=== PATIENT | male | born 1990 | race Two or more races ===

== ENCOUNTER 2023-03-05 18:53 | Emergency (ER) | payer OTHER ==
[2023-03-05 19:00] VITALS: BP 115/82; PULSE 85; RESP 18; TEMP 98.1; BMI 21.2
[2023-03-05] MEDS ORDERED: LIDOCAINE 5% TOPICAL PATCH TP ONE ×2 (19:53→19:54)
[2023-03-05] MEDS ORDERED: ACETAMINOPHEN 500 MG TABLET (FP) PO ONE (19:53)
[2023-03-05] MEDS ORDERED: ACETAMINOPHEN 500 MG TABLET (FP) ONE (19:59)
[2023-03-05] MEDS ORDERED: LIDOCAINE 4% PATCH TP ONE (20:01)
[2023-03-05] MEDS ORDERED: KETOROLAC TROMETHAMINE 30 MG/1 ML VIAL IM ONE (21:32)
[2023-03-05] MEDS ORDERED: IBUPROFEN 600 MG TABLET (FP) PO ONE ×2 (21:39→21:41)
[2023-03-05] MEDS ORDERED: LIDOCAINE PATCH REMOVAL MC SCH ×2 (22:00)
== END 2023-03-05 22:02 | disposition home or self-care (01) ==
LOC: JERFT 18:53
DX: M54.50 Low back pain, unspecified (principal); M25.512 Pain in left shoulder; M25.552 Pain in left hip; M79.605 Pain in left leg; R51.9 Headache, unspecified; V49.40XA Driver injured in collision with unspecified motor vehicles in traffic accident, initial encounter; Y93.I9 Activity, other involving external motion
CPT/HCPCS: 70450-TC; 72125-TC; 72131-TC; 72170-TC-FY; 73030-TC-LT-FY; 73502-TC-LT-FY; 73590-TC-LT-FY; 99284-25

== ENCOUNTER 2023-05-12 04:18 | Emergency (ER) | payer OTHER ==
[2023-05-12 04:23] VITALS: BP 118/81; PULSE 72; RESP 18; TEMP 98.3; BMI 21.2
[2023-05-12] MEDS ORDERED: ACETAMINOPHEN INJECTION 100 ML IVPB ONE (04:54)
[2023-05-12] MEDS ORDERED: ONDANSETRON 4 MG/2 ML VIAL ONE (04:56)
[2023-05-12] MEDS: ACETAMINOPHEN 1000 MG/100 ML BAG IVPB ONE (04:56)
[2023-05-12] MEDS: SODIUM CHLORIDE 0.9% 500 ML INFUS.BAG IV ONE (05:03)
[2023-05-12] MEDS: ONDANSETRON 4 MG/2 ML VIAL IVPUSH ONE (05:03)
[2023-05-12 05:30] LABS: BASO % 0.4 % (0-2.0); EOS % 4.3 % (0-4.5); HEMATOCRIT 44.8 % (35.4-49); HEMOGLOBIN 15.2 GM/dL (11.7-16.9); LYMPH % 25.4 % (8-40); MCHC 34.1 g/dl (32.0-35.9); MEAN CELL VOLUME 88.1 fl (80-96); MEAN PLT VOLUME 9.8 fl (7.5-11.1); MONO % 14.2 % (3.8-10.2); NEUT % 55.7 % (42.8-82.8); PLATELET COUNT 143 10^3/uL (134-434); RBC 5.08 M/mm3 (4.00-5.60); RDW 13.2 % (11.9-15.9); WHITE BLOOD COUNT 5.6 K/mm3 (4.0-10.0)
[2023-05-12 05:44] LABS: POTASSIUM 3.9 mmol/L (3.5-5.1)
[2023-05-12 05:47] LABS: CALCIUM 9.3 mg/dL (8.5-10.1)
[2023-05-12 05:48] LABS: ALBUMIN 3.8 g/dl (3.4-5.0); BLOOD UREA NITROGEN 11.6 mg/dL (7-18)
[2023-05-12 05:51] LABS: CREATININE 1.1 mg/dL (0.55-1.3)
[2023-05-12 05:52] LABS: BILIRUBIN,TOTAL 0.6 mg/dL (0.2-1); TOT PROT 7.1 g/dl (6.4-8.2)
== END 2023-05-12 08:31 | disposition home or self-care (01) ==
LOC: JER 04:18
PROC: 3E033NZ Introduction of Analgesics, Hypnotics, Sedatives into Peripheral Vein, Percutaneous Approach (ICD-10-PCS; principal; 2023-05-12)
PROC: 3E033GC Introduction of Other Therapeutic Substance into Peripheral Vein, Percutaneous Approach (ICD-10-PCS; 2023-05-12)
DX: R50.9 Fever, unspecified (principal); R11.2 Nausea with vomiting, unspecified; R42 Dizziness and giddiness; R55 Syncope and collapse; R10.84 Generalized abdominal pain; R10.31 Right lower quadrant pain; M79.10 Myalgia, unspecified site; Z20.822 Contact with and (suspected) exposure to COVID-19
CPT/HCPCS: 0241U-QW; 36415; 74177-TC; 80053; 83690; 83735; 84484; 85025; 93005; 93010; 99285-25; J0131; Q9967

== ENCOUNTER 2023-09-03 04:16 | Day surgery (SDC) | payer OTHER ==
[2023-08-27 10:12] VITALS: BMI 21.2
[2023-09-03] MEDS ORDERED: BUPIVACAINE HCL/PF 0.75% 10 ML VIAL ONE (07:28)
[2023-09-03] MEDS ORDERED: LIDOCAINE HCL/PF 1% SDV 5ML VIAL ONE (07:28)
[2023-09-03] MEDS: BUPIVACAINE HCL/PF 0.75% 10 ML VIAL NR ONE ×2 (13:27)
[2023-09-03] MEDS: LIDOCAINE HCL 1% PRESERVATIVE FREE - 30ML VIAL IJ ONE ×3 (13:27)
[2023-09-03 13:57] VITALS: RESP 16
[2023-09-03] MEDS ORDERED: ACETAMINOPHEN 500 MG TABLET (FP) ONE (15:06)
[2023-09-03] MEDS: ACETAMINOPHEN 500 MG TABLET (FP) PO PRN (15:07)
[2023-09-03 17:01] VITALS: BP 118/70; PULSE 70; TEMP 98
== END 2023-09-03 17:02 | disposition home or self-care (01) ==
LOC: JASU-SURG 04:16
PROVIDERS: ATTEND Pain Medicine Pain Medicine
PROC: 3E0T33Z Introduction of Anti-inflammatory into Peripheral Nerves and Plexi, Percutaneous Approach (ICD-10-PCS; 2023-09-03)
PROC: 3E0T3BZ Introduction of Anesthetic Agent into Peripheral Nerves and Plexi, Percutaneous Approach (ICD-10-PCS; principal; 2023-09-03 13:30)
DX: M47.816 Spondylosis without myelopathy or radiculopathy, lumbar region (principal)
CPT/HCPCS: 76000-TC-FY

== ENCOUNTER 2024-04-25 19:10 | Emergency (ER) | payer OTHER ==
[2024-04-25 19:18] VITALS: BP 137/86; PULSE 100; RESP 20; TEMP 99.2; BMI 21.1
[2024-04-25] MEDS ORDERED: ALBUTEROL SO4 2.5/IPRATROPIUM 0.5 INH SOL 3 ML VIAL.NEB. NEB ONE ×2 (20:49)
[2024-04-25] MEDS ORDERED: IBUPROFEN 600 MG TABLET (FP) PO ONE (20:49)
[2024-04-25] MEDS ORDERED: guaiFENesin/D-METHORPHAN HB 10 ML UNIT-DOSE CUPS ONE (20:49)
[2024-04-25] MEDS: ALBUTEROL SO4 2.5/IPRATROPIUM 0.5 INH SOL 3 ML VIAL.NEB. NEB ONE (21:06)
[2024-04-25] MEDS: guaiFENesin/D-METHORPHAN HB 10 ML UNIT-DOSE CUPS PO ONE (21:07)
[2024-04-25] MEDS: IBUPROFEN 600 MG TABLET (FP) PO ONE (21:07)
== END 2024-04-25 22:03 | disposition home or self-care (01) ==
LOC: JERFT 19:10
PROC: 3E0F7GC Introduction of Other Therapeutic Substance into Respiratory Tract, Via Natural or Artificial Opening (ICD-10-PCS; principal; 2024-04-25)
DX: J40 Bronchitis, not specified as acute or chronic (principal); R50.9 Fever, unspecified; M79.10 Myalgia, unspecified site; R05.9 Cough, unspecified; R07.89 Other chest pain; R53.83 Other fatigue; Z20.822 Contact with and (suspected) exposure to COVID-19
CPT/HCPCS: 0241U-QW; 71046-TC-FY; 93005; 93010; 99285-25